=== PATIENT | male | born 1990 | race Caucasian/White ===

== ENCOUNTER 2021-01-09 14:32 | Emergency (ER) | payer OTHER ==
[~2021-01-09] VITALS: Ht 190.5 cm; Wt 74.8 kg
[2021-01-09 16:15] VITALS: BP 135/86
== END 2021-01-09 16:15 | disposition home or self-care (01) ==
LOC: ER 14:32
DX: S61.411A Laceration without foreign body of right hand, initial encounter (principal); W45.8XXA Other foreign body or object entering through skin, initial encounter; Y93.89 Activity, other specified; Y92.89 Other specified places as the place of occurrence of the external cause; Y99.8 Other external cause status